=== PATIENT | male | born 2005 | race Caucasian/White ===

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

== ENCOUNTER 2024-07-02 16:15 | Emergency (ER) | payer BC | END 2024-07-02 19:42 | disposition left against medical advice (07) | LOC: MW.ED 16:15 | DX: Z53.21 Procedure and treatment not carried out due to patient leaving prior to being seen by health care provider (principal) ==